=== PATIENT | female | born 2000 | race Native Hawaiian/Other Pacific Islander ===

== ENCOUNTER 2020-01-01 02:34 | Emergency (ER) | payer SELFPAY ==
[~2020-01-01] VITALS: Ht 165.1 cm; Wt 63.5 kg
--- NOTE | 2020-01-01 02:45 | NUR ---
DR. ANDUJAR AT [facility].
[2020-01-01] MEDS ORDERED: ONDANSETRON 4 MG/2 ML VIAL ONE (02:52)
[2020-01-01] MEDS ORDERED: IV NORMAL SALINE 1000 ML BAG IV ONE (03:00)
[2020-01-01] MEDS ORDERED: ONDANSETRON 4 MG/2 ML VIAL IV ONE (03:00)
[2020-01-01 03:13] LABS: BASOPHILS # (AUTO) 0.1 K/uL (0.0-8.0); BASOPHILS % (AUTO) 0.4 % (0.0-2.0); EOSINOPHILS % (AUTO) 0.2 % (0.0-7.0); HEMATOCRIT 39.4 % (31.2-41.9); HEMOGLOBIN 13.3 g/dL (10.9-14.3); LYMPHOCYTES # (AUTO) 3.1 K/uL (20.0-40.0); LYMPHOCYTES % (AUTO) 20.2 % (20.5-74.5); MEAN CORPUSCULAR HEMOGLOBIN 30.8 uug (24.7-32.8); MEAN CORPUSCULAR HGB CONC 34 g/dL (32.3-35.6); MEAN CORPUSCULAR VOLUME 91.4 fL (75.5-95.3); MONOCYTES # (AUTO) 1.2 K/uL (2.0-10.0); MONOCYTES % (AUTO) 7.9 % (0-11); NEUTROPHILS # (AUTO) 10.8 K/uL (1.8-8.9); NEUTROPHILS % (AUTO) 71.3 % (31.5-64.5); PLATELET COUNT (AUTO) 325 K/uL (179-408); RED BLOOD CELL COUNT(AUTO) 4.31 MIL/uL (3.63-4.92); WHITE BLOOD COUNT (AUTO) 15.1 K/uL (3.8-11.8)
[2020-01-01 03:24] LABS: BILIRUBIN,DIRECT 0.1 mg/dL (0.0-0.2); BILIRUBIN,TOTAL 0.3 mg/dL (0.2-1.0); CREATININE 0.9 mg/dL (0.6-1.3); POTASSIUM 3.7 mmol/L (3.5-5.1); TOTAL PROTEIN, SERUM 7.4 g/dL (6.4-8.2)
--- NOTE | 2020-01-01 04:21 | NUR ---
Patient discharged to home in stable condition. Written and verbal after care instructions given. Patient verbalizes understanding of instructions. Stressed follow up or return to ER for worsening s/s. Patient ambulated out of ER with steady gait, no acute signs of distress, VSS, all belongings taken, IV site discontinued.
[2020-01-01 04:22] VITALS: BP 110/54
== END 2020-01-01 04:23 | disposition home or self-care (01) ==
LOC: ER 02:41
DX: O21.0 Mild hyperemesis gravidarum (principal); Z3A.01 Less than 8 weeks gestation of pregnancy; R10.9 Unspecified abdominal pain; D72.829 Elevated white blood cell count, unspecified
CPT/HCPCS: 36415; 76856; 80048; 80076; 84702; 85025; 96361; 96374; 99284; J2405; J7030